=== PATIENT | female | born 1975 | race Caucasian/White ===

== ENCOUNTER 2016-08-31 14:40 | Emergency (ER) | payer OTHER ==
[2016-08-31 14:43] VITALS: TEMP 97.9; O2SAT 97
--- NOTE | 2016-08-31 15:29 | EDPHY ---
H & P Stated Complaint: panic attack Time Seen by Provider: 08/31/16 15:23 - Personal History LMP (Females 10-55): 22-28 Days Ago Current Tetanus/Diphtheria Vaccine: Yes Current Tetanus Diphtheria and Acellular Pertussis (TDAP): Yes Tetanus Vaccine Date: within last 6 years - Medical/Surgical History Hx Asthma: No Hx Chronic Respiratory Disease: No Hx Diabetes: No Hx Cardiac Disease: No Hx Renal Disease: No Hx Cirrhosis: No Hx Alcoholism: No Hx HIV/AIDS: No Hx Splenectomy or Spleen Trauma: No - Social History Smoking Status: Never smoked Constitutional: Initial Vital Signs Temperature (C) 36.6 C 08/31/16 14:41 Heart Rate 88 08/31/16 14:41 Respiratory Rate 14 08/31/16 14:41 Blood Pressure 158/90 H 08/31/16 14:41 O2 Sat (%) 97 08/31/16 14:41 O2 Delivery Mode Room Air Allergies/Adverse Reactions: No Known Allergies Allergy (Unverified 04/08/15 10:43) Medical Decision Making ED Course/Re-evaluation: CHIEF COMPLAINT: Generalized joint pain. HISTORY OF PRESENT ILLNESS: The patient is a 41-year-old female who presents with generalized pain "throughout the body," but mostly in her hips. She has seen an orthopedic daughter for the hip pain and had an MRI taken. The MRI was read by Dr. Padilla who told her all the tendons in her hips are inflamed. The pain has recently begun in her knees and her shoulders, left worse than right. She denies finger or toe pain, fever, chills, or other complaints. She presented today because the pain was causing her anxiety. She has no family history of autoimmune disorders. REVIEW OF SYSTEMS: A 10 point review of systems was performed and is negative with the exception of the elements mentioned in the history of present illness. PHYSICAL EXAM: HR, BP, O2 Sat, RR. Temp noted General Appearance: Alert, well hydrated, appropriate, and non-toxic appearing. Head: Atraumatic without scalp tenderness or obvious injury Eyes: Pupils equal, round, reactive to light and accommodation, EOMI, no trauma , no injection. Ears: Clear bilaterally, no perforation, normal landmarks Nose: Atraumatic, no rhinorrhea, clear. Throat: There is no erythema or exudates, no lesions, normal tonsils, mucus membranes moist. Neck: Supple, 2+ carotid upstroke, nontender, no lymphadenopathy. Respiratory: No retractions, no distress, no wheezes, and no accessory muscle use. Lungs are clear to auscultation bilaterally. Cardiovascular: Regular rate and rhythm, no murmurs, rubs, or gallops. Bilateral carotid, radial, dorsalis pedis, and posterior tibial pulses intact. Good capillary refill all extremities. Gastrointestinal: Abdomen is soft, nontender, non-distended, no masses, no rebound, no guarding, no peritoneal signs. Musculoskeletal: Normal active ROM of all extremities, atraumatic. Neurological: Alert, appropriate, and interactive. The patient has normal DTRs and non-focal cranial nerves, motor, sensory, and cerebellar exam. Skin: No rashes, good turgor, no nodules on palpation. Past medical history:Bilateral hip labral tears. Past surgical history:Denies. Family history:Non-contributory. Social history:Here with friend. DIFFERENTIAL DIAGNOSIS: The differential diagnosis for the patient's symptoms includes but is not limited to autoimmune disease, rheumatoid process, fracture, sprain. MEDICAL DECISION MAKING: This is a 41 y/o woman presenting with generalized pain in the big joints of her body. She initially had hip pain and now has pain in her knees and shoulders. An MRI of the hips read by Dr. Padilla showed inflammation of the tendons in her hips. I have high concern for rheumatoid process. She has started to have a workup with her primary care provider such as MARYBETH that was double normal, but no rheumatoid workup. I will check a rheumatoid factor, ESR, CRP, anti-CCP, and CBC, and send her to a accountant. An IV was established. I discussed the follow up plan with the patient and answered all of her questions. She was given return precautions and warnings prior to leaving. She is comfortable with the plan. Departure - Departure Disposition: Home, Routine, Self-Care Clinical Impression: Joint pain Qualifiers: Joint pain location: unspecified Qualifier Code: (M25.50) Pain in unspecified joint Condition: Good Instructions: Arthralgia (ED) Additional Instructions: Call Dr. Campos tomorrow and inform him you were a patient in the ER to set up a follow up appointment. Return to the emergency department for serious worsening of condition. Referrals: Erwin Campos MD [Medical Doctor] - As per Instructions Report Scribed for: Larry Zhu Report Scribed by: Mukesh Damian Date of Report: 08/31/16 Time of Report: 15:41
[2016-08-31 16:48] VITALS: BP 139/90; PULSE 80; RESP 16
[2016-08-31 17:06] LABS: % IMMATURE GRANULYOCYTES 0.2 % (0.0-1.1); ABSOLUTE IMMATURE GRANULOCYTES 0.01 10^3/uL (0.00-0.10); ADD DIFF? NO; ADD MORPH? NO; ADD SCAN? NO; ATYPICAL LYMPHOCYTE FLAG 10 (0-99); FRAGMENT RBC FLAG 0 (0-99); HEMOGLOBIN 13.4 g/dL (12.6-16.3); LEFT SHIFT FLG 0 (0-99); LIPEMIA HEMOLYSIS FLAG 90 (0-99); MEAN CELL HEMOGLOBIN 29.8 pg (27.9-34.1); MEAN CELL HEMOGLOBIN CONCENTR. 34.4 g/dL (32.4-36.7); MEAN CELL VOLUME 86.9 fL (81.5-99.8); MEAN PLATELET VOLUME 9.3 fL (8.7-11.7); PLATELET CLUMPS FLAG 0 (0-99); PLATELET COUNT 243 10^3/uL (150-400); RED BLOOD CELL COUNT 4.49 10^6/uL (4.18-5.33); RED CELL DISTRIBUTION WIDTH 12.8 % (11.5-15.2)
[2016-08-31 17:25] LABS: ALANINE AMINOTRANSFERASE 28 IU/L (9-52); ALBUMIN 4.1 g/dL (3.5-5.0); ALKALINE PHOSPHATASE 52 IU/L (38-126); ANION GAP 10 mEq/L (8-16); ASPARTATE AMINOTRANSFERASE 24 IU/L (14-46); BILIRUBIN,TOTAL 0.5 mg/dL (0.1-1.4); BILIRUBIN-CONJUGATED 0.2 mg/dL (0.0-0.5); BILIRUBIN-UNCONJUGATED 0.3 mg/dL (0.0-1.1); C-REACTIVE PROTEIN < 5.0 mg/L (<10.0); CALCIUM 9.3 mg/dL (8.5-10.4); CARBON DIOXIDE 26 mEq/l (22-31); CHLORIDE 105 mEq/L (97-110); GLOMERULAR FILTRATION RATE > 60; GLUCOSE 95 mg/dL (70-100); POTASSIUM 4.5 mEq/L (3.5-5.2); SODIUM 141 mEq/L (134-144); TOTAL PROTEIN 7.2 g/dL (6.3-8.2)
[2016-08-31 17:30] LABS: SEDIMENTATION RATE 13 MM/HR (0-20)
== END 2016-08-31 16:47 | disposition home or self-care (01) ==
DX: M25.50 Pain in unspecified joint (principal)

== ENCOUNTER → 2017-05-11 | Outpatient (CLI) | payer OTHER | LOC: FIMAGING 12:10 | PROVIDERS: ATTEND Physical Medicine & Rehabilitation | DX: Z12.31 Encounter for screening mammogram for malignant neoplasm of breast (principal) | CPT/HCPCS: G0202 ==